=== PATIENT | female | born 1945 | race Caucasian/White ===

== ENCOUNTER 2019-08-16 20:42 | Emergency (ER) | payer OTHER, MEDICAID ==
[~2019-08-16] VITALS: Ht 154.9 cm; Wt 78.9 kg
[2019-08-16 20:58] VITALS: BP_SYST 148
[2019-08-16 23:50] VITALS: BP_SYST 138
== END 2019-08-16 23:50 | disposition home or self-care (01) ==
LOC: SED 20:42
DX: L29.9 Pruritus, unspecified (principal); J43.8 Other emphysema; I10 Essential (primary) hypertension
CPT/HCPCS: 99281

== ENCOUNTER 2023-04-08 18:17 | Inpatient (IN) | payer OTHER, MEDICAID ==
[~2023-04-08] VITALS: Ht 162.6 cm; Wt 64.9 kg
[2023-04-08 18:17] VITALS: BP_SYST 104; PULSE 66; RESP 19; TEMP 97.8; O2SAT 93
[~2023-04-08 18:17] MED LIST: AMLO5TAB4 PO; CARV6.2554 PO; LIP20 PO; METO-542 PO; ROCPM1 IV; SPIR25TA PO
[2023-04-08] MEDS ORDERED: cefTRIAXone 1 GM IVPB PREMIX 50 ML IV ONE (18:45)
[2023-04-08 19:01] LABS: HEMOGLOBIN 11.9 g/dL (12.0-16.0); MEAN CORPUSCULAR VOLUME 88 fL (79.0-98.0)
[2023-04-08 19:09] LABS: HEMATOCRIT 36.4 % (36-48); MEAN CORPUSCULAR HEMOGLOBIN 29 pg (27-31); MEAN CORPUSCULAR HGB CONC 33 % (32-36); PLATELET COUNT (AUTO) 263 K/uL (130-430); RED BLOOD CELL COUNT(AUTO) 4.14 MIL/uL (4.2-6.2); RED CELL DISTRIBUTION WIDTH 16.2 % (9.0-15.0); WHITE BLOOD COUNT (AUTO) 11.4 K/uL (4.8-10.8)
[2023-04-08 19:23] LABS: ALANINE AMINOTRANSFERASE 55 U/L (12-78); ALBUMIN 2.3 g/dL (3.4-4.8); ANION GAP 6 (5-15); ASPARTATE AMINOTRANSFERASE 24 U/L (10-37); CALCIUM 7.7 mg/dL (8.4-11.0); CARBON DIOXIDE 28 mmol/L (23-29); CHLORIDE 100 mmol/L (98-107); CREATININE 0.76 mg/dL (0.55-1.30); GLUCOSE 125 mg/dL (74-106); SODIUM SERUM 134 mmol/L (136-145); TOTAL BILIRUBIN 1.1 mg/dL (0.0-1.0); TOTAL PROTEIN, SERUM 6.4 g/dL (6.4-8.3); UREA NITROGEN, BLOOD 8 mg/dL (8-21)
[2023-04-08 19:40] LABS: POTASSIUM 2.5 mmol/L (3.5-5.1)
[2023-04-08 19:54] LABS: BAND % (MANUAL) 2 % (0-6); BASOPHILS % (MANUAL) 0 % (0-2); EOSINOPHILS % (MANUAL) 1 % (0-7); LYMPHOCYTES % (MANUAL) 26 % (20-46); MONOCYTES % (MANUAL) 26 % (0-11)
[2023-04-08 19:55] LABS: ANISOCYTOSIS 1+; OVALOCYTES FEW; PLATELET ESTIMATE ADEQUATE (ADEQUATE)
[2023-04-08] MEDS ORDERED: POTASSIUM CHLORIDE 20 MEQ/PKT PACKET PO ONE (20:00)
[2023-04-08 20:33] LABS: INFLUENZA TYPE A Negative (NEGATIVE); INFLUENZA TYPE B NEGATIVE (NEGATIVE)
[2023-04-08] MEDS: METHYLPREDNISOLONE SOD SUCC 40 MG/ML VIAL IVP SCH (21:19)
[2023-04-08 23:25] VITALS: PULSE 79
[2023-04-08 23:28] VITALS: BP_SYST 95; PULSE 79; O2SAT 94
[2023-04-08 23:36] VITALS: BP_SYST 109; PULSE 66; RESP 19; TEMP 97.7; O2SAT 96
[2023-04-09] VITALS (7 sets, daily range): BP systolic 98–112; PULSE 63–76; RESP 16–18; TEMP 97.9–98.6; O2SAT 92–97
[2023-04-09] MEDS: METHYLPREDNISOLONE SOD SUCC 40 MG/ML VIAL IVP SCH ×2 (10:31→21:36)
[2023-04-09] MEDS: amLODIPine BESYLATE 5 MG TABLET PO SCH (18:15)
[2023-04-09] MEDS ORDERED: HYDROcodone/ACETAMIN 5-325 MG TAB (NORCO/ VICODIN) PO PRN (18:15)
[2023-04-09] MEDS ORDERED: ACETAMINOPHEN 325 MG TABLET PO PRN (18:15)
[2023-04-09] MEDS ORDERED: LORazepam 2 MG/ML VIAL IVP PRN (18:15)
[2023-04-09] MEDS ORDERED: NALOXONE HCL 0.4 MG/ML AMP (NARCAN) IVP PRN ×2 (18:15)
[2023-04-09] MEDS ORDERED: ONDANSETRON HCL 4 MG/2 ML VIAL IVP PRN (18:15)
[2023-04-09] MEDS ORDERED: HYDROcodone/ACETAMIN 10-325 MG TAB PO PRN (18:15)
[2023-04-09] MEDS: CARVEDILOL 6.25 MG TABLET (COREG) PO SCH (21:00)
[2023-04-10] VITALS (12 sets, daily range): BP systolic 100–111; PULSE 64–75; RESP 16–18; TEMP 97.3–99.4; O2SAT 93–97
[2023-04-10] MEDS ORDERED: cefTRIAXone 1 GM IVPB PREMIX 50 ML IV SCH (02:00)
[2023-04-10] MEDS ORDERED: cefTRIAXone 1 GM VIAL ONE (02:03)
[2023-04-10] MEDS: NORMAL SALINE 5 ML DISP.SYRIN IVF SCH ×4 (02:16→20:50)
[2023-04-10] MEDS: IPRATROPIUM BROM 0.5 MG/2.5 ML VIAL.NEB (ATROVENT) INH SCH ×6 (02:58→23:00)
[2023-04-10] MEDS: ALBUTEROL SULFATE 0.083% 2.5 MG/3 ML VIAL.NEB INH SCH ×6 (02:58→23:00)
[2023-04-10 05:03] LABS: BASOPHILS % (AUTO) 0.1 % (0.0-2.0); HEMATOCRIT 34.7 % (36-48); HEMOGLOBIN 11.4 g/dL (12.0-16.0); MEAN CORPUSCULAR HEMOGLOBIN 29 pg (27-31); MEAN CORPUSCULAR HGB CONC 33 % (32-36); MEAN CORPUSCULAR VOLUME 87 fL (79.0-98.0); MONOCYTES # (AUTO) 0.5 K/uL (0.0-1.0); MONOCYTES % (AUTO) 4.4 % (1.7-9.3); NEUTROPHILS # (AUTO) 8.6 K/uL (1.8-7.7); NEUTROPHILS % (AUTO) 77.5 % (40.0-70.0); PLATELET COUNT (AUTO) 265 K/uL (130-430); RED BLOOD CELL COUNT(AUTO) 3.98 MIL/uL (4.2-6.2); RED CELL DISTRIBUTION WIDTH 16.5 % (9.0-15.0)
[2023-04-10 05:15] LABS: ANION GAP 8 (5-15); CALCIUM 7.6 mg/dL (8.4-11.0); CARBON DIOXIDE 26 mmol/L (23-29); CHLORIDE 102 mmol/L (98-107); CREATININE 0.48 mg/dL (0.55-1.30); GLUCOSE 156 mg/dL (74-106); POTASSIUM 3.4 mmol/L (3.5-5.1); SODIUM SERUM 136 mmol/L (136-145); UREA NITROGEN, BLOOD 12 mg/dL (8-21)
[2023-04-10] MEDS: CARVEDILOL 6.25 MG TABLET (COREG) PO SCH ×2 (08:53→20:14)
[2023-04-10] MEDS: amLODIPine BESYLATE 5 MG TABLET PO SCH (08:54)
[2023-04-10] MEDS: METHYLPREDNISOLONE SOD SUCC 40 MG/ML VIAL IVP SCH ×2 (10:30→20:48)
[2023-04-10] MEDS: CEFTRIAXONE SOD 1 GM/ D5W 50 ML IV SCH ×2 (20:49)
[2023-04-11] VITALS (9 sets, daily range): BP systolic 113–127; PULSE 66–73; RESP 15–18; TEMP 97.9–98.7; O2SAT 94–99
[2023-04-11] MEDS: IPRATROPIUM BROM 0.5 MG/2.5 ML VIAL.NEB (ATROVENT) INH SCH ×6 (03:00→23:00)
[2023-04-11] MEDS: ALBUTEROL SULFATE 0.083% 2.5 MG/3 ML VIAL.NEB INH SCH ×6 (03:00→23:00)
[2023-04-11] MEDS: NORMAL SALINE 5 ML DISP.SYRIN IVF SCH ×3 (06:13→21:21)
[2023-04-11 07:32] LABS: BASOPHILS % (AUTO) 0.2 % (0.0-2.0); EOSINOPHILS % (AUTO) 0.1 % (0.0-4.0); HEMATOCRIT 35.7 % (36-48); HEMOGLOBIN 11.5 g/dL (12.0-16.0); LYMPHOCYTES # (AUTO) 3.2 K/uL (1.0-5.5); LYMPHOCYTES % (AUTO) 20.3 % (20.5-51.5); MEAN CORPUSCULAR HEMOGLOBIN 29 pg (27-31); MEAN CORPUSCULAR HGB CONC 32 % (32-36); MEAN CORPUSCULAR VOLUME 89 fL (79.0-98.0); MONOCYTES # (AUTO) 3.5 K/uL (0.0-1.0); MONOCYTES % (AUTO) 22.1 % (1.7-9.3); NEUTROPHILS # (AUTO) 9.2 K/uL (1.8-7.7); NEUTROPHILS % (AUTO) 57.3 % (40.0-70.0); PLATELET COUNT (AUTO) 266 K/uL (130-430); RED BLOOD CELL COUNT(AUTO) 4.01 MIL/uL (4.2-6.2); RED CELL DISTRIBUTION WIDTH 16.8 % (9.0-15.0)
[2023-04-11 07:47] LABS: ANION GAP 4 (5-15); CALCIUM 7.6 mg/dL (8.4-11.0); CARBON DIOXIDE 27 mmol/L (23-29); CHLORIDE 102 mmol/L (98-107); CREATININE 0.48 mg/dL (0.55-1.30); GLUCOSE 95 mg/dL (74-106); POTASSIUM 3.3 mmol/L (3.5-5.1); SODIUM SERUM 133 mmol/L (136-145); UREA NITROGEN, BLOOD 13 mg/dL (8-21)
[2023-04-11 07:51] LABS: ERYTHROCYTE SEDIMENTATION RATE 15 MM/HR (0-20)
[2023-04-11] MEDS: CARVEDILOL 6.25 MG TABLET (COREG) PO SCH ×2 (08:19→21:21)
[2023-04-11] MEDS: amLODIPine BESYLATE 5 MG TABLET PO SCH (08:19)
[2023-04-11] MEDS: METHYLPREDNISOLONE SOD SUCC 40 MG/ML VIAL IVP SCH ×2 (10:01→21:20)
[2023-04-11] MEDS ORDERED: POTASSIUM CHLORIDE 20 MEQ TAB.PRT.SR PO ONE (12:00)
[2023-04-11] MEDS: CEFTRIAXONE SOD 1 GM/ D5W 50 ML IV SCH ×2 (21:20)
[2023-04-11] MEDS: CALCIUM 500 MG/TAB PO SCH (21:20)
[2023-04-12] VITALS (10 sets, daily range): BP systolic 108–119; PULSE 66–77; RESP 16–18; TEMP 97.7–98.2; O2SAT 95–100
[2023-04-12] MEDS: IPRATROPIUM BROM 0.5 MG/2.5 ML VIAL.NEB (ATROVENT) INH SCH ×5 (03:00→20:18)
[2023-04-12] MEDS: ALBUTEROL SULFATE 0.083% 2.5 MG/3 ML VIAL.NEB INH SCH ×5 (03:00→20:18)
[2023-04-12 05:08] LABS: ERYTHROCYTE SEDIMENTATION RATE 15 MM/HR (0-20)
[2023-04-12 05:13] LABS: BASOPHILS % (AUTO) 0.2 % (0.0-2.0); EOSINOPHILS % (AUTO) 0.1 % (0.0-4.0); HEMATOCRIT 34.5 % (36-48); HEMOGLOBIN 11.2 g/dL (12.0-16.0); LYMPHOCYTES # (AUTO) 1.9 K/uL (1.0-5.5); LYMPHOCYTES % (AUTO) 18.9 % (20.5-51.5); MEAN CORPUSCULAR HEMOGLOBIN 29 pg (27-31); MEAN CORPUSCULAR HGB CONC 33 % (32-36); MEAN CORPUSCULAR VOLUME 89 fL (79.0-98.0); MONOCYTES # (AUTO) 0.3 K/uL (0.0-1.0); MONOCYTES % (AUTO) 3.3 % (1.7-9.3); NEUTROPHILS # (AUTO) 7.7 K/uL (1.8-7.7); NEUTROPHILS % (AUTO) 77.5 % (40.0-70.0); PLATELET COUNT (AUTO) 258 K/uL (130-430); RED BLOOD CELL COUNT(AUTO) 3.89 MIL/uL (4.2-6.2); RED CELL DISTRIBUTION WIDTH 17.1 % (9.0-15.0); WHITE BLOOD COUNT (AUTO) 9.9 K/uL (4.8-10.8)
[2023-04-12 05:46] LABS: ALANINE AMINOTRANSFERASE 231 U/L (12-78); ALBUMIN 2.3 g/dL (3.4-4.8); ANION GAP 8 (5-15); ASPARTATE AMINOTRANSFERASE 74 U/L (10-37); CALCIUM 7.6 mg/dL (8.4-11.0); CARBON DIOXIDE 25 mmol/L (23-29); CHLORIDE 98 mmol/L (98-107); CREATININE 0.53 mg/dL (0.55-1.30); GLUCOSE 135 mg/dL (74-106); PHOSPHORUS 2.6 mg/dL (2.7-4.5); POTASSIUM 4.5 mmol/L (3.5-5.1); SODIUM SERUM 131 mmol/L (136-145); TOTAL BILIRUBIN 0.8 mg/dL (0.0-1.0); TOTAL PROTEIN, SERUM 6.3 g/dL (6.4-8.3); UREA NITROGEN, BLOOD 14 mg/dL (8-21)
[2023-04-12] MEDS: NORMAL SALINE 5 ML DISP.SYRIN IVF SCH ×3 (06:22→21:01)
[2023-04-12] MEDS: amLODIPine BESYLATE 5 MG TABLET PO SCH (09:00)
[2023-04-12] MEDS: CARVEDILOL 6.25 MG TABLET (COREG) PO SCH ×2 (09:00→21:01)
[2023-04-12] MEDS: CALCIUM 500 MG/TAB PO SCH ×2 (09:58→21:01)
[2023-04-12] MEDS ORDERED: METHYLPREDNISOLONE SOD SUCC 40 MG/ML VIAL IVP SCH (21:00)
[2023-04-12] MEDS: CEFTRIAXONE SOD 1 GM/ D5W 50 ML IV SCH ×2 (22:41)
[2023-04-13] VITALS (10 sets, daily range): BP systolic 114–145; PULSE 72–88; RESP 15–20; TEMP 97.4–98.9; O2SAT 90–96
[2023-04-13] MEDS: ALBUTEROL SULFATE 0.083% 2.5 MG/3 ML VIAL.NEB INH SCH ×6 (03:00→19:25)
[2023-04-13] MEDS: IPRATROPIUM BROM 0.5 MG/2.5 ML VIAL.NEB (ATROVENT) INH SCH ×6 (03:00→19:25)
[2023-04-13 05:06] LABS: BASOPHILS % (AUTO) 0.1 % (0.0-2.0); EOSINOPHILS % (AUTO) 0.1 % (0.0-4.0); HEMATOCRIT 38.2 % (36-48); HEMOGLOBIN 12.3 g/dL (12.0-16.0); LYMPHOCYTES # (AUTO) 2.3 K/uL (1.0-5.5); LYMPHOCYTES % (AUTO) 14.9 % (20.5-51.5); MEAN CORPUSCULAR HEMOGLOBIN 28 pg (27-31); MEAN CORPUSCULAR HGB CONC 32 % (32-36); MEAN CORPUSCULAR VOLUME 89 fL (79.0-98.0); MONOCYTES # (AUTO) 0.9 K/uL (0.0-1.0); MONOCYTES % (AUTO) 5.7 % (1.7-9.3); NEUTROPHILS # (AUTO) 12.4 K/uL (1.8-7.7); NEUTROPHILS % (AUTO) 79.2 % (40.0-70.0); PLATELET COUNT (AUTO) 272 K/uL (130-430); RED BLOOD CELL COUNT(AUTO) 4.32 MIL/uL (4.2-6.2); RED CELL DISTRIBUTION WIDTH 17.1 % (9.0-15.0); WHITE BLOOD COUNT (AUTO) 15.7 K/uL (4.8-10.8)
[2023-04-13 05:16] LABS: ANION GAP 8 (5-15); CARBON DIOXIDE 27 mmol/L (23-29); CHLORIDE 100 mmol/L (98-107); CREATININE 0.57 mg/dL (0.55-1.30); GLUCOSE 122 mg/dL (74-106); POTASSIUM 4.4 mmol/L (3.5-5.1); SODIUM SERUM 135 mmol/L (136-145); UREA NITROGEN, BLOOD 13 mg/dL (8-21)
[2023-04-13] MEDS: NORMAL SALINE 5 ML DISP.SYRIN IVF SCH ×3 (05:55→20:36)
[2023-04-13] MEDS: CARVEDILOL 6.25 MG TABLET (COREG) PO SCH ×2 (10:01→20:35)
[2023-04-13] MEDS: predniSONE 5 MG TABLET PO SCH (10:02)
[2023-04-13] MEDS: CALCIUM 500 MG/TAB PO SCH ×2 (10:02→20:35)
[2023-04-13] MEDS: amLODIPine BESYLATE 5 MG TABLET PO SCH (10:24)
[2023-04-13] MEDS: CEFTRIAXONE SOD 1 GM/ D5W 50 ML IV SCH ×2 (21:28)
[2023-04-14] VITALS (11 sets, daily range): BP systolic 107–132; PULSE 76–85; RESP 18–20; TEMP 97.6–98.7; O2SAT 90–98
[2023-04-14] MEDS: ALBUTEROL SULFATE 0.083% 2.5 MG/3 ML VIAL.NEB INH SCH ×6 (03:00→19:46)
[2023-04-14] MEDS: IPRATROPIUM BROM 0.5 MG/2.5 ML VIAL.NEB (ATROVENT) INH SCH ×6 (03:00→19:46)
[2023-04-14] MEDS: NORMAL SALINE 5 ML DISP.SYRIN IVF SCH ×3 (06:09→21:09)
[2023-04-14 08:19] LABS: BASOPHILS # (AUTO) 0.1 K/uL (0.0-0.2); BASOPHILS % (AUTO) 0.7 % (0.0-2.0); EOSINOPHILS # (AUTO) 0.1 K/uL (0.0-0.4); EOSINOPHILS % (AUTO) 0.3 % (0.0-4.0); HEMATOCRIT 36.6 % (36-48); HEMOGLOBIN 11.9 g/dL (12.0-16.0); LYMPHOCYTES # (AUTO) 4.4 K/uL (1.0-5.5); MEAN CORPUSCULAR HEMOGLOBIN 29 pg (27-31); MEAN CORPUSCULAR HGB CONC 33 % (32-36); MEAN CORPUSCULAR VOLUME 88 fL (79.0-98.0); MONOCYTES % (AUTO) 28.2 % (1.7-9.3); NEUTROPHILS # (AUTO) 8.1 K/uL (1.8-7.7); NEUTROPHILS % (AUTO) 45.8 % (40.0-70.0); PLATELET COUNT (AUTO) 206 K/uL (130-430); RED BLOOD CELL COUNT(AUTO) 4.15 MIL/uL (4.2-6.2); RED CELL DISTRIBUTION WIDTH 16.9 % (9.0-15.0); WHITE BLOOD COUNT (AUTO) 17.6 K/uL (4.8-10.8)
[2023-04-14] MEDS: CALCIUM 500 MG/TAB PO SCH ×2 (09:29→21:09)
[2023-04-14] MEDS: predniSONE 5 MG TABLET PO SCH (09:29)
[2023-04-14] MEDS: CARVEDILOL 6.25 MG TABLET (COREG) PO SCH ×2 (09:29→21:09)
[2023-04-14] MEDS: amLODIPine BESYLATE 5 MG TABLET PO SCH (09:31)
[2023-04-14] MEDS: FUROSEMIDE 20 MG/2 ML VIAL IVP SCH ×2 (10:05→21:45)
[2023-04-14] MEDS ORDERED: IPRATROPIUM/ALBUTEROL SULFATE 3 ML AMPUL.NEB (DUONEB) INH PRN (13:30)
[2023-04-14] MEDS ORDERED: cefTRIAXone 1 GM in D5W 50 ML IV SCH (21:00)
[2023-04-15] VITALS (10 sets, daily range): BP systolic 105–128; PULSE 83–98; RESP 20–24; TEMP 98.4–99.1; O2SAT 83–92
[2023-04-15] MEDS ORDERED: PIPERACILLIN/TAZOBACTAM 3.375 GM/VIAL (ZOSYN) IV ONE (02:19)
[2023-04-15] MEDS: PIPERACILLIN/TAZO 3.375/DEX-IS 50 ML IV SCH ×4 (02:24→18:18)
[2023-04-15] MEDS: IPRATROPIUM BROM 0.5 MG/2.5 ML VIAL.NEB (ATROVENT) INH SCH ×7 (03:58→22:45)
[2023-04-15] MEDS: ALBUTEROL SULFATE 0.083% 2.5 MG/3 ML VIAL.NEB INH SCH ×7 (03:58→22:45)
[2023-04-15] MEDS: NORMAL SALINE 5 ML DISP.SYRIN IVF SCH ×2 (05:51→12:53)
[2023-04-15 06:45] LABS: HEMATOCRIT 37.7 % (36-48); HEMOGLOBIN 12.3 g/dL (12.0-16.0); MEAN CORPUSCULAR HEMOGLOBIN 29 pg (27-31); MEAN CORPUSCULAR HGB CONC 33 % (32-36); MEAN CORPUSCULAR VOLUME 88 fL (79.0-98.0); PLATELET COUNT (AUTO) 192 K/uL (130-430); RED BLOOD CELL COUNT(AUTO) 4.26 MIL/uL (4.2-6.2)
[2023-04-15 07:55] LABS: ANION GAP 5 (5-15); CALCIUM 9.2 mg/dL (8.4-11.0); CARBON DIOXIDE 30 mmol/L (23-29); CHLORIDE 100 mmol/L (98-107); CREATININE 0.51 mg/dL (0.55-1.30); GLUCOSE 91 mg/dL (74-106); POTASSIUM 3.2 mmol/L (3.5-5.1); SODIUM SERUM 135 mmol/L (136-145); UREA NITROGEN, BLOOD 13 mg/dL (8-21)
[2023-04-15 08:29] LABS: ANISOCYTOSIS 1+; BAND % (MANUAL) 2 % (0-6); BASOPHILS % (MANUAL) 0 % (0-2); EOSINOPHILS % (MANUAL) 0 % (0-7); LYMPHOCYTES % (MANUAL) 22 % (20-46); MONOCYTES % (MANUAL) 24 % (0-11); PLATELET ESTIMATE ADEQUATE (ADEQUATE)
[2023-04-15] MEDS: DOXYCYCLINE HYCLATE 100 MG in D5W 100 ML IV SCH ×2 (09:59→20:47)
[2023-04-15] MEDS: amLODIPine BESYLATE 5 MG TABLET PO SCH (10:01)
[2023-04-15] MEDS: CARVEDILOL 6.25 MG TABLET (COREG) PO SCH ×2 (10:02→20:45)
[2023-04-15] MEDS: CALCIUM 500 MG/TAB PO SCH ×2 (10:03→20:45)
[2023-04-15] MEDS: predniSONE 5 MG TABLET PO SCH (10:03)
[2023-04-15] MEDS ORDERED: POTASSIUM CHLORIDE 20 MEQ TAB.PRT.SR PO ONE (11:00)
[2023-04-16] VITALS (12 sets, daily range): BP systolic 108–134; PULSE 74–82; RESP 16–20; TEMP 97–98.4; O2SAT 91–97
[2023-04-16] MEDS: PIPERACILLIN/TAZO 3.375/DEX-IS 50 ML IV SCH ×4 (00:41→17:06)
[2023-04-16] MEDS: NORMAL SALINE 5 ML DISP.SYRIN IVF SCH ×4 (00:42→20:26)
[2023-04-16] MEDS: ALBUTEROL SULFATE 0.083% 2.5 MG/3 ML VIAL.NEB INH SCH ×6 (02:19→23:08)
[2023-04-16] MEDS: IPRATROPIUM BROM 0.5 MG/2.5 ML VIAL.NEB (ATROVENT) INH SCH ×6 (02:20→23:09)
[2023-04-16 05:38] LABS: HEMOGLOBIN 11.6 g/dL (12.0-16.0); MEAN CORPUSCULAR HEMOGLOBIN 29 pg (27-31); MEAN CORPUSCULAR HGB CONC 33 % (32-36); MEAN CORPUSCULAR VOLUME 87 fL (79.0-98.0); PLATELET COUNT (AUTO) 188 K/uL (130-430); RED BLOOD CELL COUNT(AUTO) 4.01 MIL/uL (4.2-6.2); RED CELL DISTRIBUTION WIDTH 17.3 % (9.0-15.0); WHITE BLOOD COUNT (AUTO) 20.6 K/uL (4.8-10.8)
[2023-04-16 06:39] LABS: ANION GAP 5 (5-15); CALCIUM 9.3 mg/dL (8.4-11.0); CARBON DIOXIDE 28 mmol/L (23-29); CHLORIDE 96 mmol/L (98-107); CREATININE 0.62 mg/dL (0.55-1.30); GLUCOSE 103 mg/dL (74-106); POTASSIUM 3.7 mmol/L (3.5-5.1); SODIUM SERUM 129 mmol/L (136-145); UREA NITROGEN, BLOOD 10 mg/dL (8-21)
[2023-04-16 08:00] LABS: BASOPHILS # (AUTO) 0.1 K/uL (0.0-0.2); BASOPHILS % (AUTO) 0.3 % (0.0-2.0); EOSINOPHILS # (AUTO) 0.1 K/uL (0.0-0.4); EOSINOPHILS % (AUTO) 0.3 % (0.0-4.0); LYMPHOCYTES # (AUTO) 4.1 K/uL (1.0-5.5); MONOCYTES # (AUTO) 7.9 K/uL (0.0-1.0); MONOCYTES % (AUTO) 38.3 % (1.7-9.3); NEUTROPHILS # (AUTO) 8.5 K/uL (1.8-7.7)
[2023-04-16 09:12] LABS: NEUTROPHILS % (AUTO) 41.1 % (40.0-70.0)
[2023-04-16] MEDS: DOXYCYCLINE HYCLATE 100 MG in D5W 100 ML IV SCH ×2 (09:20→20:22)
[2023-04-16] MEDS: CARVEDILOL 6.25 MG TABLET (COREG) PO SCH ×2 (09:21→20:23)
[2023-04-16] MEDS: predniSONE 5 MG TABLET PO SCH (09:21)
[2023-04-16] MEDS: CALCIUM 500 MG/TAB PO SCH ×2 (09:22→20:23)
[2023-04-16] MEDS: amLODIPine BESYLATE 5 MG TABLET PO SCH (09:23)
[2023-04-16] MEDS: FLUCONAZOLE 100 mg/ NS 50 ML IV SCH (10:32)
[2023-04-16 11:31] LABS: BASOPHILS # (AUTO) 0.1 K/uL (0.0-0.2); BASOPHILS % (AUTO) 0.4 % (0.0-2.0); EOSINOPHILS # (AUTO) 0.1 K/uL (0.0-0.4); EOSINOPHILS % (AUTO) 0.3 % (0.0-4.0); HEMATOCRIT 34.3 % (36-48); HEMOGLOBIN 11.5 g/dL (12.0-16.0); LYMPHOCYTES # (AUTO) 3.4 K/uL (1.0-5.5); LYMPHOCYTES % (AUTO) 17.9 % (20.5-51.5); MEAN CORPUSCULAR HEMOGLOBIN 30 pg (27-31); MEAN CORPUSCULAR HGB CONC 34 % (32-36); MEAN CORPUSCULAR VOLUME 88 fL (79.0-98.0); MONOCYTES # (AUTO) 7.4 K/uL (0.0-1.0); MONOCYTES % (AUTO) 39.6 % (1.7-9.3); NEUTROPHILS # (AUTO) 7.8 K/uL (1.8-7.7); PLATELET COUNT (AUTO) 188 K/uL (130-430); RED BLOOD CELL COUNT(AUTO) 3.92 MIL/uL (4.2-6.2); RED CELL DISTRIBUTION WIDTH 17.5 % (9.0-15.0); WHITE BLOOD COUNT (AUTO) 18.8 K/uL (4.8-10.8)
[2023-04-16 11:51] LABS: NEUTROPHILS % (AUTO) 41.8 % (40.0-70.0)
[2023-04-16] MEDS: D5NS 1,000 ML IV SCH (12:31)
[2023-04-17] VITALS (11 sets, daily range): BP systolic 114–149; PULSE 64–81; RESP 16–20; TEMP 96.8–98.9; O2SAT 89–98
[2023-04-17] MEDS: IPRATROPIUM BROM 0.5 MG/2.5 ML VIAL.NEB (ATROVENT) INH SCH ×5 (03:41→20:29)
[2023-04-17] MEDS: ALBUTEROL SULFATE 0.083% 2.5 MG/3 ML VIAL.NEB INH SCH ×5 (03:41→20:28)
[2023-04-17] MEDS: PIPERACILLIN/TAZO 3.375/DEX-IS 50 ML IV SCH ×3 (04:45→17:55)
[2023-04-17] MEDS: NORMAL SALINE 5 ML DISP.SYRIN IVF SCH ×3 (04:45→21:19)
[2023-04-17 05:29] LABS: BASOPHILS % (AUTO) 0.2 % (0.0-2.0); EOSINOPHILS # (AUTO) 0.1 K/uL (0.0-0.4); EOSINOPHILS % (AUTO) 0.4 % (0.0-4.0); HEMATOCRIT 32.9 % (36-48); HEMOGLOBIN 10.7 g/dL (12.0-16.0); LYMPHOCYTES # (AUTO) 3.3 K/uL (1.0-5.5); LYMPHOCYTES % (AUTO) 21.8 % (20.5-51.5); MEAN CORPUSCULAR HEMOGLOBIN 29 pg (27-31); MEAN CORPUSCULAR HGB CONC 33 % (32-36); MEAN CORPUSCULAR VOLUME 88 fL (79.0-98.0); MONOCYTES # (AUTO) 6.1 K/uL (0.0-1.0); MONOCYTES % (AUTO) 40.3 % (1.7-9.3); NEUTROPHILS # (AUTO) 5.7 K/uL (1.8-7.7); NEUTROPHILS % (AUTO) 37.3 % (40.0-70.0); PLATELET COUNT (AUTO) 189 K/uL (130-430); RED BLOOD CELL COUNT(AUTO) 3.76 MIL/uL (4.2-6.2); RED CELL DISTRIBUTION WIDTH 17.8 % (9.0-15.0); WHITE BLOOD COUNT (AUTO) 15.2 K/uL (4.8-10.8)
[2023-04-17 05:38] LABS: ANION GAP 7 (5-15); CALCIUM 9.4 mg/dL (8.4-11.0); CARBON DIOXIDE 27 mmol/L (23-29); CHLORIDE 102 mmol/L (98-107); CREATININE 0.51 mg/dL (0.55-1.30); GLUCOSE 102 mg/dL (74-106); POTASSIUM 3.4 mmol/L (3.5-5.1); SODIUM SERUM 136 mmol/L (136-145); UREA NITROGEN, BLOOD 8 mg/dL (8-21)
[2023-04-17] MEDS: predniSONE 5 MG TABLET PO SCH (08:08)
[2023-04-17] MEDS: CALCIUM 500 MG/TAB PO SCH ×2 (08:08→21:18)
[2023-04-17] MEDS: CARVEDILOL 6.25 MG TABLET (COREG) PO SCH ×2 (08:08→21:18)
[2023-04-17] MEDS: D5NS 1,000 ML IV SCH (08:10)
[2023-04-17] MEDS: DOXYCYCLINE HYCLATE 100 MG in D5W 100 ML IV SCH ×2 (08:25→21:16)
[2023-04-17] MEDS: amLODIPine BESYLATE 5 MG TABLET PO SCH (09:58)
[2023-04-17] MEDS: FLUCONAZOLE 100 mg/ NS 50 ML IV SCH (09:59)
[2023-04-17 16:33] LABS: BILIRUBIN,URINE NEGATIVE (NEGATIVE); BLOOD, URINE NEGATIVE (NEGATIVE); CLARITY/URINE CLEAR (CLEAR); COLOR,URINE YELLOW (YELLOW); GLUCOSE,URINE NEGATIVE (NEGATIVE); KETONES,URINE NEGATIVE (NEGATIVE); NITRITE, URINE NEGATIVE (NEGATIVE); PROTEIN URINE NEGATIVE (NEGATIVE); UROBILINOGEN,URINE 0.2 (0.2-1.0)
[2023-04-17 16:39] LABS: LEUKOCYTE ESTERASE ,URINE TRACE (NEGATIVE)
[2023-04-17 16:40] LABS: BACTERIA,URINE FEW /HPF (None Seen); MUCUS,URINE None Seen /LPF (None Seen); RBC,URINE 0-3 /HPF (0-3)
[2023-04-18] VITALS (10 sets, daily range): BP systolic 122–152; PULSE 75–79; RESP 17–20; TEMP 97.6–98.6; O2SAT 88–97
[2023-04-18] MEDS: ALBUTEROL SULFATE 0.083% 2.5 MG/3 ML VIAL.NEB INH SCH ×7 (00:01→23:07)
[2023-04-18] MEDS: IPRATROPIUM BROM 0.5 MG/2.5 ML VIAL.NEB (ATROVENT) INH SCH ×7 (00:01→23:07)
[2023-04-18] MEDS: D5NS 1,000 ML IV SCH (05:44)
[2023-04-18] MEDS: PIPERACILLIN/TAZO 3.375/DEX-IS 50 ML IV SCH ×4 (05:44→18:00)
[2023-04-18] MEDS: NORMAL SALINE 5 ML DISP.SYRIN IVF SCH ×3 (05:44→20:35)
[2023-04-18 07:25] LABS: BASOPHILS % (AUTO) 0.1 % (0.0-2.0); EOSINOPHILS % (AUTO) 0.2 % (0.0-4.0); HEMATOCRIT 33.1 % (36-48); HEMOGLOBIN 10.7 g/dL (12.0-16.0); LYMPHOCYTES % (AUTO) 16.8 % (20.5-51.5); MEAN CORPUSCULAR HEMOGLOBIN 29 pg (27-31); MEAN CORPUSCULAR HGB CONC 32 % (32-36); MEAN CORPUSCULAR VOLUME 89 fL (79.0-98.0); MONOCYTES # (AUTO) 4.5 K/uL (0.0-1.0); MONOCYTES % (AUTO) 25.3 % (1.7-9.3); NEUTROPHILS # (AUTO) 10.3 K/uL (1.8-7.7); NEUTROPHILS % (AUTO) 57.6 % (40.0-70.0); PLATELET COUNT (AUTO) 213 K/uL (130-430); RED BLOOD CELL COUNT(AUTO) 3.75 MIL/uL (4.2-6.2); RED CELL DISTRIBUTION WIDTH 17.3 % (9.0-15.0)
[2023-04-18 07:31] LABS: ALANINE AMINOTRANSFERASE 41 U/L (12-78); ALBUMIN 2.1 g/dL (3.4-4.8); ANION GAP 8 (5-15); ASPARTATE AMINOTRANSFERASE 12 U/L (10-37); CALCIUM 9.3 mg/dL (8.4-11.0); CARBON DIOXIDE 26 mmol/L (23-29); CHLORIDE 101 mmol/L (98-107); CREATININE 0.52 mg/dL (0.55-1.30); GLUCOSE 135 mg/dL (74-106); SODIUM SERUM 135 mmol/L (136-145); TOTAL BILIRUBIN 1.6 mg/dL (0.0-1.0); TOTAL PROTEIN, SERUM 6.2 g/dL (6.4-8.3); UREA NITROGEN, BLOOD 6 mg/dL (8-21)
[2023-04-18 07:33] LABS: POTASSIUM 2.7 mmol/L (3.5-5.1)
[2023-04-18] MEDS: CARVEDILOL 6.25 MG TABLET (COREG) PO SCH ×2 (08:51→20:34)
[2023-04-18] MEDS: predniSONE 5 MG TABLET PO SCH (08:51)
[2023-04-18] MEDS: DOXYCYCLINE HYCLATE 100 MG in D5W 100 ML IV SCH ×2 (08:52→20:33)
[2023-04-18] MEDS: amLODIPine BESYLATE 5 MG TABLET PO SCH (08:52)
[2023-04-18] MEDS: CALCIUM 500 MG/TAB PO SCH ×2 (08:52→20:34)
[2023-04-18] MEDS ORDERED: POTASSIUM CHLORIDE 40 MEQ, LIDOCAINE JECT 2% PF 100 MG 50 MG in NS 250 ML IV ONE (10:00)
[2023-04-18] MEDS: FLUCONAZOLE 100 mg/ NS 50 ML IV SCH (10:26)
[2023-04-18] MEDS: NACL 0.9% 1,000 ML IV SCH (21:39)
[2023-04-19] VITALS (9 sets, daily range): BP systolic 126–148; PULSE 65–72; RESP 17–18; TEMP 96.5–98.6; O2SAT 93–99
[2023-04-19] MEDS: ALBUTEROL SULFATE 0.083% 2.5 MG/3 ML VIAL.NEB INH SCH ×6 (03:00→23:03)
[2023-04-19] MEDS: IPRATROPIUM BROM 0.5 MG/2.5 ML VIAL.NEB (ATROVENT) INH SCH ×6 (03:00→23:03)
[2023-04-19] MEDS: PIPERACILLIN/TAZO 3.375/DEX-IS 50 ML IV SCH ×5 (03:23→23:50)
[2023-04-19 04:51] LABS: BASOPHILS % (AUTO) 0.1 % (0.0-2.0); EOSINOPHILS % (AUTO) 0.3 % (0.0-4.0); HEMATOCRIT 31.2 % (36-48); HEMOGLOBIN 10.1 g/dL (12.0-16.0); LYMPHOCYTES # (AUTO) 3.3 K/uL (1.0-5.5); LYMPHOCYTES % (AUTO) 19.7 % (20.5-51.5); MEAN CORPUSCULAR HEMOGLOBIN 29 pg (27-31); MEAN CORPUSCULAR HGB CONC 32 % (32-36); MEAN CORPUSCULAR VOLUME 89 fL (79.0-98.0); MONOCYTES # (AUTO) 5.2 K/uL (0.0-1.0); MONOCYTES % (AUTO) 31.1 % (1.7-9.3); NEUTROPHILS # (AUTO) 8.1 K/uL (1.8-7.7); NEUTROPHILS % (AUTO) 48.8 % (40.0-70.0); PLATELET COUNT (AUTO) 199 K/uL (130-430); RED BLOOD CELL COUNT(AUTO) 3.52 MIL/uL (4.2-6.2); RED CELL DISTRIBUTION WIDTH 16.9 % (9.0-15.0); WHITE BLOOD COUNT (AUTO) 16.7 K/uL (4.8-10.8)
[2023-04-19 05:02] LABS: ANION GAP 9 (5-15); CARBON DIOXIDE 25 mmol/L (23-29); CHLORIDE 103 mmol/L (98-107); CREATININE 0.44 mg/dL (0.55-1.30); GLUCOSE 105 mg/dL (74-106); SODIUM SERUM 137 mmol/L (136-145); UREA NITROGEN, BLOOD 5 mg/dL (8-21)
[2023-04-19 05:18] LABS: POTASSIUM 2.9 mmol/L (3.5-5.1)
[2023-04-19] MEDS: NORMAL SALINE 5 ML DISP.SYRIN IVF SCH ×3 (06:18→21:08)
[2023-04-19] MEDS ORDERED: KCL 40 mEq in 100 mL (PREMIX) 100 ML IV SCH (09:00)
[2023-04-19] MEDS ORDERED: POTASSIUM CHLORIDE 40 MEQ in NS 250 ML IV SCH (09:00)
[2023-04-19] MEDS: CALCIUM 500 MG/TAB PO SCH ×2 (09:16→21:07)
[2023-04-19] MEDS: predniSONE 5 MG TABLET PO SCH (09:16)
[2023-04-19] MEDS: NACL 0.9% 1,000 ML IV SCH ×3 (09:16→23:50)
[2023-04-19] MEDS: CARVEDILOL 6.25 MG TABLET (COREG) PO SCH ×2 (09:17→21:07)
[2023-04-19] MEDS: amLODIPine BESYLATE 5 MG TABLET PO SCH (09:18)
[2023-04-19] MEDS: DOXYCYCLINE HYCLATE 100 MG in D5W 100 ML IV SCH ×2 (14:01→21:07)
[2023-04-19] MEDS: FLUCONAZOLE 100 mg/ NS 50 ML IV SCH (16:06)
[2023-04-19] MEDS ORDERED: *TPN PER PHARMACY XX PRN (17:00)
[2023-04-19] MEDS ORDERED: DEXTROSE 50% JECT 50 ML DISP.SYRIN IVP PRN (17:00)
[2023-04-19] MEDS ORDERED: POTASSIUM CHLORIDE 20 MEQ TAB.PRT.SR PO ONE (19:00)
[2023-04-20] VITALS (8 sets, daily range): BP systolic 133–146; PULSE 71–76; RESP 16–19; TEMP 96.5–98.1; O2SAT 93–97
[2023-04-20] MEDS: IPRATROPIUM BROM 0.5 MG/2.5 ML VIAL.NEB (ATROVENT) INH SCH ×4 (03:00→16:03)
[2023-04-20] MEDS: ALBUTEROL SULFATE 0.083% 2.5 MG/3 ML VIAL.NEB INH SCH ×4 (03:00→16:03)
[2023-04-20 05:35] LABS: BASOPHILS # (AUTO) 0.2 K/uL (0.0-0.2); BASOPHILS % (AUTO) 2.2 % (0.0-2.0); EOSINOPHILS # (AUTO) 0.1 K/uL (0.0-0.4); EOSINOPHILS % (AUTO) 0.4 % (0.0-4.0); HEMATOCRIT 32.3 % (36-48); HEMOGLOBIN 10.4 g/dL (12.0-16.0); LYMPHOCYTES # (AUTO) 3.7 K/uL (1.0-5.5); LYMPHOCYTES % (AUTO) 33.2 % (20.5-51.5); MEAN CORPUSCULAR HEMOGLOBIN 28 pg (27-31); MEAN CORPUSCULAR HGB CONC 32 % (32-36); MEAN CORPUSCULAR VOLUME 88 fL (79.0-98.0); MONOCYTES # (AUTO) 2.8 K/uL (0.0-1.0); MONOCYTES % (AUTO) 24.6 % (1.7-9.3); NEUTROPHILS # (AUTO) 4.4 K/uL (1.8-7.7); NEUTROPHILS % (AUTO) 39.6 % (40.0-70.0); PLATELET COUNT (AUTO) 205 K/uL (130-430); RED BLOOD CELL COUNT(AUTO) 3.67 MIL/uL (4.2-6.2); RED CELL DISTRIBUTION WIDTH 17.3 % (9.0-15.0); WHITE BLOOD COUNT (AUTO) 11.2 K/uL (4.8-10.8)
[2023-04-20] MEDS: PIPERACILLIN/TAZO 3.375/DEX-IS 50 ML IV SCH ×2 (05:36→11:31)
[2023-04-20] MEDS: NORMAL SALINE 5 ML DISP.SYRIN IVF SCH ×2 (05:37→14:50)
[2023-04-20 06:11] LABS: ALANINE AMINOTRANSFERASE 36 U/L (12-78); ANION GAP 8 (5-15); ASPARTATE AMINOTRANSFERASE 15 U/L (10-37); CALCIUM 8.6 mg/dL (8.4-11.0); CARBON DIOXIDE 25 mmol/L (23-29); CHLORIDE 103 mmol/L (98-107); CREATININE 0.46 mg/dL (0.55-1.30); GLUCOSE 83 mg/dL (74-106); POTASSIUM 3.2 mmol/L (3.5-5.1); SODIUM SERUM 136 mmol/L (136-145); TOTAL BILIRUBIN 1.1 mg/dL (0.0-1.0); TOTAL PROTEIN, SERUM 5.7 g/dL (6.4-8.3); TRIGLYCERIDES 71 mg/dL (30-150); UREA NITROGEN, BLOOD 5 mg/dL (8-21)
[2023-04-20] MEDS: predniSONE 5 MG TABLET PO SCH (08:53)
[2023-04-20] MEDS: CARVEDILOL 6.25 MG TABLET (COREG) PO SCH (08:53)
[2023-04-20] MEDS: CALCIUM 500 MG/TAB PO SCH (08:53)
[2023-04-20] MEDS: amLODIPine BESYLATE 5 MG TABLET PO SCH (08:53)
[2023-04-20] MEDS: DOXYCYCLINE HYCLATE 100 MG in D5W 100 ML IV SCH (09:16)
[2023-04-20] MEDS ORDERED: POTASSIUM CHLORIDE 20 MEQ TAB.PRT.SR PO ONE (11:45)
[2023-04-20] MEDS: NACL 0.9% 1,000 ML IV SCH (13:00)
[2023-04-20] MEDS ORDERED: ALBMDI INH (15:47)
[2023-04-20] MEDS ORDERED: DOXY-244 PO (15:47)
[2023-04-20] MEDS ORDERED: AMOX-423 PO (15:47)
[2023-04-20] MEDS ORDERED: PRED5TAB PO (15:47)
[2023-04-20] MEDS ORDERED: AMLO5TAB4 PO (15:47)
== END 2023-04-20 18:10 | disposition home health service (06) | DRG 177 ==
LOC: SED 18:17 → STU 20:24 → SMU 04-11 05:26 → STU 04-16 09:59
PROVIDERS: ADMIT Specialist; ATTEND Specialist
PROC: 5A09357 Assistance with Respiratory Ventilation, Less than 24 Consecutive Hours, Continuous Positive Airway Pressure (ICD-10-PCS; principal; 2023-04-08)
PROC: 5A0945A Assistance with Respiratory Ventilation, 24-96 Consecutive Hours, High Flow/Velocity Cannula (ICD-10-PCS; 2023-04-15)
DX: J69.0 Pneumonitis due to inhalation of food and vomit (principal); J96.01 Acute respiratory failure with hypoxia; J44.1 Chronic obstructive pulmonary disease with (acute) exacerbation; J44.0 Chronic obstructive pulmonary disease with (acute) lower respiratory infection; E87.1 Hypo-osmolality and hyponatremia; E78.5 Hyperlipidemia, unspecified; D64.9 Anemia, unspecified; I10 Essential (primary) hypertension; K46.9 Unspecified abdominal hernia without obstruction or gangrene; K80.20 Calculus of gallbladder without cholecystitis without obstruction; K57.30 Diverticulosis of large intestine without perforation or abscess without bleeding; Z20.822 Contact with and (suspected) exposure to COVID-19; Z88.2 Allergy status to sulfonamides
CPT/HCPCS: 36415; 71045; 71250-TC; 76376; 80048; 80053; 81000; 82962; 83605; 83735; 83880; 84100; 84132; 84478; 84484; 85007; 85025; 85027; 85651-TC; 87040; 87081; 92610-GN; 93005; 93306; 94640; 94660; 94760; 96365; 97110-GP; 97116-GP; 97530-GP; 99285; G0378; J0696; J1030; J1450; J1940; J2543; J3480; J3490; J7050; J7060; J7512